=== PATIENT | female | born 1955 | race Caucasian/White ===

== ENCOUNTER 2016-12-24 07:05 | Inpatient (IN) | payer OTHER ==
[2016-12-24] VITALS (10 sets, daily range): BP systolic 120–131; BP diastolic 36–80; BMI 30.8
[~2016-12-24] VITALS: Ht 165.1 cm; Wt 83.9 kg
[~2016-12-24 07:05] MED LIST: ACTOS45 MG PO; ALEVE220 MG PO; AMBIEN10 MG PO; ASPIRIN EC81 M1 PO; CALCIUM 600 +1 EAC3 PO; CELEXA40 MG PO; GLUCOPHAGE1000 MG PO; HYDROCHLOROTHIA25 MG PO; HYDROCODON-ACE1 EAC7 PO; LIPITOR40 MG PO; MELATONIN5 MG PO; MIRALAX17 GM PO; MOBIC7.5 MG PO; PRINIVIL20 MG PO; VIBRAMYCIN 100100 MG PO
[2016-12-24 07:57] LABS: HEMATOCRIT 30.2 % (36.0-48.0); HEMOGLOBIN 9.3 g/dL (12-16); MCH 25.5 pg (26.0-34.0); MCHC 30.8 g/dL (31.0-37.0); MEAN PLATELET VOLUME 10.1 fL (7.4-10.4); RBC 3.64 10x6/uL (4.00-5.40); RDW 15.3 % (11.5-14.5); WBC 10.2 10x3/uL (4.8-10.8)
[2016-12-24 08:09] LABS: ANION GAP 14.4 mmol/L (8-16); CALCIUM 9.1 mg/dL (8.5-10.1); CARBON DIOXIDE 26.3 mmol/L (21.0-32.0); CREATININE - SERUM 1.1 mg/dL (0.6-1.3); POTASSIUM - SERUM 4.7 mmol/L (3.5-5.1)
--- NOTE | 2016-12-24 19:55 | NUR ---
REC'D PER STRETCHER FROM PACU POST OP OPEN HERNIA REPAIR PER SERVICES DR. MORIN. ASSESSMENT DONE LARGE MIDLINE ABDOMINAL INCISION WITH DRESSING C/D/I. TWO LAP SITES ON THE RIGHT ABDOMEN AND ENID DRAIN ON LEFT ABDOMEN. IV PATENT RT HAND SALINE LOCKED. IV LEFT ARM OF NS PLACED AT 125CC'S/HR. SITES X2 C/D/I. EPIDURAL IN PLACE. CONTINUOUS PULSE ON AND VS MACHINE SETUP TO MONITOR PATIENT. FAMILY MEMBERS IN ROOM.BANGURA TO BS DRAINAGE WITH YELLOW URINE.
--- NOTE | 2016-12-24 20:00 | NUR ---
PT C/O PAIN NOTIFIED ANESTHESIA OF THIS. ANESTHESIA CAME OVER AND SETUP BOLUS IF THIS DOES NOT HELP THEN A SMALL KICK PRESS OPERATOR MAY BE USED. HOB UP 30 DEGREES.
--- NOTE | 2016-12-24 21:00 | NUR ---
DENIES PAIN USES PILLOW TO SPLINT INCISION WITH COUGHING EFFORTS. WILL CONTINUE TO MONITOR PATIENT.
--- NOTE | 2016-12-24 22:30 | NUR ---
RESTING QUIETLY VS AND PULSE OX REMAIN STABLE.
[2016-12-25] VITALS (8 sets, daily range): BP systolic 122–152; BP diastolic 49–79; Ht 165.1 cm; Wt 83.9 kg
--- NOTE | 2016-12-25 | NUR ---
EYES CLOSED RESPIRATIONS WITH EASE AND UNLABORED O2 ON 2L/M PER NC SINCE ARRIVAL TO FLOOR. NO C/O PAIN OR DISTRESS.
--- NOTE | 2016-12-25 01:00 | NUR ---
VS REMAIN STABLE PLACED ON A BEDSIDE PULSE OX CONTINUOUS. REMOVED VS MACHINE PT TAKING ICE CHIPS WITHOUT NAUSEA OR VOMITING.
--- NOTE | 2016-12-25 05:22 | NUR ---
RESTING QUIETLY PULSE OX REMAINS AT 97-98% ON 2L/M PER NC.
--- NOTE | 2016-12-25 08:05 | NUR ---
ASSESSMENT PER FLOW SHEET.PT WITHOUT DISTRESS.DRESSING TO MIDLINE INCISION CDI.LAP SITES X2 WITH DRESSING IN PLACE CDI.ENID SITE CDI WITH BULB COMPRESSED, LIGHT AMOUNT OF DRAINAGE IN BULB.BANGURA TO GRAVITY WITH CLEAR YELLOW URINE IN BAG.EPIDURAL CATH IN PLACE,WITH DRESSING CLEAN AND DRY.PT REPOSITIONED.CONT PULSE OX IN PLACE,SATS 94-96 ON 2 LITERS PER NC.MONITOR
--- NOTE | 2016-12-25 10:50 | NUR ---
Patient Name: TYLER TOBIAS Admission Status: Elective Accout number: [id number] Admission Date: 12-24-2016 : 1955 Admission Diagnosis: Attending: MALLORY Current LOS: 1 Anticipated DC Date: 12-27-2016 Planned Disposition: Home Primary Insurance: [email or web address] [facility] INS EXCHANGE Discharge Planning Comments: CM SPOKE WITH PATIENT REGARDING D/C NEEDS AND PLANS. PATIENT STATED HER DAUGHTER (LIDIA) LIVES WITH HER AND WILL DRIVE HER HOME AT DISCHARGE. PATIENT HAS 2 STEPS TO ENTER HOME AND NO STAIRS INSIDE. PATIENT IS INDEPENDENT WITH HER CARE AND HAS A GLUCOMETER AT HOME (CHECKS 1X MONTH). PATIENT CAN BORROW WALKER, AND BS COMMODE FROM NEIGHBOR IF NEEDED. PATIENTS PCP IS DR. HELLEN RUIZ IN [place] AND USES [facility] IN [place]. PATIENT DOES NOT THINK SHE WILL NEED HOME HEALTH AT THIS TIME. CM WILL CONTINUE TO FOLLOW PATIENT WITH D/C NEEDS AND PLANS. PCP DR. HELLEN RUIZ [facility] AT [place] [phone] LIDIA CRUZ (DAUGHTER) [phone] Childcare Aide: Alexandra Garcia Is the patient Alert and Oriented? Yes 0 * How many steps to enter\exit or inside your home? 2 0 * PCP DR. HELLEN RUIZ ([place]) 0 * Pharmacy [facility]. IN [place] 0 * Preadmission Environment Home with Family 0 * ADLs Independent 0 * Equipment Glucometer 0 * Other Equipment CAN BORROW WALKER, AND BS COMMODE FROM NEIGHBOR 0 * List name and contact numbers for known caregivers / representatives who currently or will assist patient after discharge: LIDIA CRUZ (DAUGHTER) [phone] 0 * Community resources currently utilized None 0 * Additional services required to return to the preadmission environment? Yes 0 * Can the patient safely return to the preadmission environment? Yes 0 * Has this patient been hospitalized within the prior 30 days at any hospital? No 0 Grand Total: 0
--- NOTE | 2016-12-25 11:50 | NUR ---
INSTRUCTED PT TO PUSH EPIDURAL BUTTON FOR PAIN CONTROL.PT STATES PAIN 5/10 SCALE AT "BELLY BUTTON AREA." REMAINS WITHOUT DISTRESS, ALERT AND SATS 94-96 ON 2 LITERS PER NASAL CANULA.
--- NOTE | 2016-12-25 16:14 | NUR ---
FSBS 124, DECLINES MEDS
--- NOTE | 2016-12-25 18:07 | NUR ---
REMAINS WITHOUT NEEDS,WITHOUT DISTRESS.NO CHANGE FROM INITIAL SHIFT ASSESSMENT.CONT PLAN OF CARE
[2016-12-26] VITALS: BP 127/64
[2016-12-26 04:00] VITALS: BP 139/67
--- NOTE | 2016-12-26 07:50 | NUR ---
ASSESSMENT PER FLOW SHEET.PT WITHOUT DISTRESS AND DENIES PAIN.DRESSING TO ABD CDI TO MIDLINE INCISION.LAP SITES X2 CDI.ENID LLQ WITH MINIMAL DRAINAGE IN BULB.WITHOUT NAUSEA,BS HYPOACTIVE.PT STATES SHE IS PASSING GAS.REMAINS NPO.CALL LIGHT IN REACH
[2016-12-26 08:05] VITALS: BP 142/52
[2016-12-26 11:03] VITALS: BP 145/58
[2016-12-26 15:01] VITALS: BP 156/68
--- NOTE | 2016-12-26 15:27 | NUR ---
REMAINS WITHOUT DISTRESS.PAIN CONTROLLED.MONITOR
--- NOTE | 2016-12-26 16:30 | NUR ---
FSBS 109.REMAINS WITHOUT CHANGE FROM INITIAL SHIFT ASSESSMENT.TOLERATING CLD WITHOUT NAUSEA.CONT PLAN OF CARE
[2016-12-26 20:00] VITALS: BP 148/60
[2016-12-27] VITALS: BP 151/64
--- NOTE | 2016-12-27 01:30 | NUR ---
HUNG A NEW BAG OF FLUIDS. PATIENT DENIES OTHER NEEDS. BED IN LOWEST POSITION AND CALL LIGHT WITHIN REACH. ENCOURAGED THE PATIENT TO CALL IF SHE HAS FURTHER NEEDS.
[2016-12-27 04:00] VITALS: BP 149/67
--- NOTE | 2016-12-27 07:15 | NUR ---
REPORT RECEIVED FROM CUSTOMER OPERATIONS ASSOCIATE NURSE. CALL LIGHT IN REACH.
--- NOTE | 2016-12-27 07:24 | NUR ---
ANESTHESIOLOGIST IN ROOM TO PULL EPIDURAL.
--- NOTE | 2016-12-27 09:35 | NUR ---
ASSESSMENT COMPLETED. ACTOS PO. REFUSES METFORMIN BECAUSE PATIENT DOES NOT WANT BOTH DIABETES MEDS AT THIS TIME. NEW BAG OF NS INITIATED AND IV TUBING CHANGED PER HOSPITAL POLICY. DRSGs TO ABDOMEN CHANGED PER ORDER. DILAUDID SECURED ENTRANCE MONITOR INITIATED PER ORDER. SCDs TO BLE. CALL LIGHT IN REACH. WILL CONTINUE WITH PLAN OF CARE.
--- NOTE | 2016-12-27 10:05 | NUR ---
ASSISTED TO BR AND BACK TO BED. LIQUID STOOL NOTED IN TOILET AFTERWARDS.
[2016-12-27 10:08] VITALS: BP 160/55
--- NOTE | 2016-12-27 12:08 | NUR ---
SCHEDULED TYLENOL PER ORDER. CALL LIGHT IN REACH.
[2016-12-27 13:13] VITALS: BP 152/60
--- NOTE | 2016-12-27 13:41 | NUR ---
PT AOX4 RESP EVEN AND NONLABORED PT HERE FOR HERNIA REPAIR FOR THIS VISIT. PT DENIES NEEDS AT THIS TIME IV TO LEFT FOREARM PATENT AND INTACT SRX2 BED AT LOWEST SETTING CALL LIGHT WITHIN REACH. FAMILY AT BEDSIDE WILL CONTINUE TO MONITOR
--- NOTE | 2016-12-27 15:20 | NUR ---
STATES SHE HAS HAD A TOTAL OF 4 BMs SO FAR TODAY.
--- NOTE | 2016-12-27 17:02 | NUR ---
TYLENOL AND METFORMIN PO. CALL LIGHT IN REACH.
--- NOTE | 2016-12-27 17:36 | NUR ---
IV PEPCID PER ORDER. NEW BAG OF PRIMARY FLUIDS INITIATED. O2 DECREASED TO 1.5L PER NC. BANGURA CATH DC'D WITH TIP INTACT. ALSO PATIENT REPOSITIONED IN BED FOR COMFORT.T
[2016-12-27 17:37] VITALS: BP 138/47
--- NOTE | 2016-12-27 18:03 | NUR ---
NO CHANGES IN INITIAL ASSESSMENT. WANTS TO LEAVE SCDs OFF AT THIS TIME. CALL LIGHT IN REACH. WILL CONTINUE WITH PLAN OF CARE.
[2016-12-27 20:00] VITALS: BP 171/60
--- NOTE | 2016-12-27 23:00 | NUR ---
2250-CHIEF ARCHITECT NOTE-no complaints of pain or nausea. epidural out this day and states bench hand helps when she thinks to use it. haque out and voiding without complaints. jesús x 1 noted with scant amount of drainage-serous looking with 1 clot. states is passing gas-bowel sounds heard in all quad. states has had 5 loose stools today. call light in reach
[2016-12-28] VITALS: BP 148/54
[2016-12-28 04:00] VITALS: BP 153/44
--- NOTE | 2016-12-28 07:15 | NUR ---
REPORT RECEIVED FROM MACHINE STAPLER NURSE. CALL LIGHT IN REACH.
[2016-12-28 09:02] VITALS: BP 193/75
--- NOTE | 2016-12-28 09:53 | NUR ---
ASSESSMENT COMPLETED. ACTOS PO. WANTS TO HOLD OFF ON METFORMIN FOR NOW. PATIENT VERY ANXIOUS AND UPSET BECAUSE OF THE CONSTANT TRIPS BACK AND FORTH TO THE BATHROOM FOR BMs. ALSO INQUIRING ABOUT HER HOME MED AND A DIABETIC DIET. SPOKE WITH DR. MOIRN AND NEW ORDERS RECEIVED. SCDs HOOKED UP AND RESTARTED AT THIS TIME. CALL LIGHT IN REACH. WILL CONTINUE WITH PLAN OF CARE.
--- NOTE | 2016-12-28 10:20 | NUR ---
TOLERATED SOLID FOODS WELL. WILL CONTINUE TO MONITOR AT THIS TIME.
--- NOTE | 2016-12-28 12:24 | NUR ---
ORAL MEDS ADMINISTERED PER ORDER. CALL LIGHT IN REACH.
[2016-12-28 12:44] VITALS: BP 141/59
--- NOTE | 2016-12-28 14:58 | NUR ---
RESTING WITH EYES CLOSED. RESP EVEN AND UNLABORED. CALL LIGHT IN REACH.
--- NOTE | 2016-12-28 15:11 | NUR ---
RESTING QUIETLY IN BED. DENIES ANY NEEDS AT PRESENT.
--- NOTE | 2016-12-28 16:53 | NUR ---
REQUESTING BLOOD SUGAR. 157.
[2016-12-28 17:19] VITALS: BP 149/56
--- NOTE | 2016-12-28 18:00 | NUR ---
DRSGs X4 TO ABDOMEN CHANGED. NO OTHER CHANGES IN INITIAL ASSESSMENT. CALL LIGHT IN REACH. SCDs STILL OFF PER REQUEST. CALL LIGHT IN REACH. WILL CONTINUE WITH PLAN OF CARE.
[2016-12-28 20:00] VITALS: BP 148/57
--- NOTE | 2016-12-28 20:00 | NUR ---
ASSESSMENT PER FLOWSHEET. IV PATENT LEFT FOREARM OF NS AT 125CC'S/HR. FOREST FIRE LOOKOUT OF DILAUDID IN USE WITH SETTINGS AT 0.2MG Q10MIN W/NO LOCKOUT. MIDLINE ABD. INCISIONS X3 C/D/I. ENID DRAIN PATENT AND COMPRESSED.
--- NOTE | 2016-12-28 21:30 | NUR ---
MEDS GIVEN PER MAR.
[2016-12-29] VITALS: BP 136/48
--- NOTE | 2016-12-29 | NUR ---
RESTING QUIETLY RESPIRATIONS WITH EAS AND UNLABORED. PT HAS SOME SKIN TEARS ON HER BACK FROM TAPE REMOVAL AND EPIDURAL. NEOSPORING OINT. APPLIED TO SITES.
[2016-12-29 04:00] VITALS: BP 122/48
--- NOTE | 2016-12-29 07:30 | NUR ---
AWAKE AND ALERT AT THIS TIME. CALL LIGHT IN REACH, WILL CONTINUE WITH PLAN OF CARE.
[2016-12-29 08:00] VITALS: BP 125/45
--- NOTE | 2016-12-29 09:21 | NUR ---
SCHEDULED MEDICATIONS ADMINISTERED AT THIS TIME WITHOUT DIFFICULTY. FOREST TECHNOLOGY PROFESSOR D/C PER ORDER. ASSESSMENT PERFORMED PER FLOWSHEET. DRESSING REMAINS C/D/I TO ABDOMEN. ENID DRAIN WITH SEROUS DRAINAGE EMPTIED AT THIS TIME. BULB COMPRESSED. CALL LIGHT IN REACH, WILL CONTINUE WITH PLAN OF CARE.
[2016-12-29 11:35] VITALS: BP 129/45
--- NOTE | 2016-12-29 15:15 | NUR ---
PRN NORCO ADMINISTERED FOR PAIN 08/22. ENID DRAIN TO LEFT ABDOMEN REMOVED PER ORDER. DRESSINGS REMOVED FROM ABDOMEN AND ALL WELL APPROXIMATED WITH RADHA INTACT.
--- NOTE | 2016-12-29 17:04 | NUR ---
DISCHARGE PAPERWORK REVIEWED AND IV D/C WITH CATH TIP INTACT.
--- NOTE | 2016-12-30 10:04 | OP ---
PATIENT NAME: TYLER TOBIAS MEDICAL RECORD: [id number] :57 LOCATION:D.MS Lopez.2222 ADMISSION DATE:12/24/16 SURGEON: AVIS MORIN MD DATE OF OPERATION: 12/25/2016 PREOPERATIVE DIAGNOSIS: Multiple recurrent incisional hernias. POSTOPERATIVE DIAGNOSES: 1. Multiple recurrent incisional hernias, incarcerated with inability to close the fascia in the midline without utilizing the component separation technique. 2. Extensive intra-abdominal adhesions. PROCEDURE: Open complex recurrent incisional hernia repair with intraabdominal mesh with fascial closure over the mesh and the bilateral component separation technique. The myofascial release on the left was a 12.5 cm release. The myofascial release on the right was an 18 cm release. SURGEON: Avis Morin MD. PORCELAIN TECHNICIAN: None. BLOOD LOSS: 200 cc. ANESTHESIA: General. COMPLICATIONS: None. The risks, possible complications and alternatives to procedure were explained to the patient. She elects to proceed. A generous midline incision was accomplished. Sharp dissection was carried down into the peritoneal cavity. An extensive adhesiolysis was undertaken. This was a sharp adhesiolysis. Most of the adhesions were grade II grade III adhesions. Once I had complete adhesiolysis, I ran the small bowel. I noted no evidence of enterotomy. There was no evidence of any injury to the colon either. Attenuated fascia in the midline was excised with the electrocautery. Subcutaneous flaps were created sharply on top of the rectus muscles, which were widely . I was unable to approximate the rectus muscles in the midline. I went to the right side. A paramedian incision was accomplished between the right costal margin and the anterior superior iliac spine. Utilizing the electrocautery, I performed a myofascial release of the external oblique muscle. This was a full thickness release. Finger dissection was carried out deep to the muscle in order to allow for a complete release, so that the rectus muscle in the midline could be brought to medial. Even with this myofascial release on the right side, I was unable to approximate the fascia and the rectus muscles in the midline. Therefore, a bilateral release was needed. I went around to the left side. A paramedian incision was accomplished between the left costal margin and the anterior superior iliac spine. I dissected down to the external oblique muscle. This was incised with the electrocautery. A finger dissection was performed to ensure that a complete release of this muscle had been accomplished. OPERATIVE REPORT [id number] TYLER TOBIAS A large bilayered mesh was placed intraabdominally with the slick side down. I tacked in place on the left side with the SecureStrap Tacker. This was a skirted mesh. At no time was there any apparent injury to the intestines. I then brought the fascia together in the midline. I tacked some more of the mesh at this time on the right side to the anterior abdominal wall utilizing the SecureStrap Tacker. At no time was there any apparent injury to the intestines. I then approximated the fascia in the midline with a running looped #1 PDS incorporating a portion of the mesh with some of the PDS sutures. The suture was then tied. I irrigated and aspirated. There was no bleeding. The subcutaneous tissues in the midline a 19-Yoruba round Eduardo drain was placed. It was brought through the skin in the left lower quadrant. All 3 incisions were closed in the following manner. Interrupted 3-0 Vicryls for the deep dermis. Tereza for the skin. A sterile dressing was applied. The patient was then extubated and conveyed to the post-anesthesia care unit where she was in stable condition. She will be admitted as she will have a postoperative ileus and we will need to await return of bowel function. TRANSINT:[id number] Voice Confirmation ID: [id number] DOCUMENT ID: [id number] AVIS MORIN MD at 1004 CC: HELLEN RUIZ [id number] DICTATION DATE: 12/25/16 112 DEPUTY SHERIFF GENERALIST/BAILIFF: 12/25/162150 DIS IN 12/29/16 [facility] [address] [place] [address]
--- NOTE | 2016-12-30 10:04 | DS ---
PATIENT:TYLER TOBIAS :57 MEDICAL RECORD: [id number] DISCHARGE SUMMARY ADMISSION DATE: 12/24/16 DISCHARGE DATE: 12/29/16 PREOPERATIVE DIAGNOSIS: Complex incarcerated incisional hernias. PROCEDURE: Open complex recurrent incarcerated incisional hernias utilizing intraperitoneal mesh and the component separation technique for closure. SECONDARY DIAGNOSIS: Ucj-elkimio-zaguqzymp diabetes mellitus. HOSPITAL COURSE: The patient underwent the above operative procedure. Her pain was controlled with the patient controlled analgesia pump as well with an epidural catheter. Her bowel function returned. Her diet was advanced. The drain was removed prior to dismissal. I will see her in the office in 2 weeks for staple removal. TRANSINT:[id number] Voice Confirmation ID: [id number] DOCUMENT ID: [id number] AVIS MORIN MD at 1004 CC: HELLEN RUIZ [id number] DICTATION DATE: 12/29/16 1457 MARKETING EDUCATION TEACHER: 12/30/16 0204 DIS IN 12/29/16 [facility] [address] [place] [address]
--- NOTE | 2016-12-30 10:04 | HP ---
PATIENT: TYLER TOBIAS MEDICAL RECORD: [id number] ACCOUNT: [id number] LOCATION:D.MS Lopez.2222 : 57 ADMISSION DATE: 12/24/16 HISTORY AND PHYSICAL EXAMINATION There is a history and physical on the chart. This is a typed history and physical. Her history and physical examination is unchanged from her visit in the office. The risks, possible complications and alternatives to procedure were explained to the patient. She elects to proceed. TRANSINT:[id number] Voice Confirmation ID: [id number] DOCUMENT ID: [id number] AVIS MORIN MD at 1004 CC: HELLEN RUIZ [id number] DICTATION DATE: 12/24/161816 NEW GRAD RN: 12/24/162221 DIS IN 12/29/16 [address] [place] [address]
== END 2016-12-29 17:04 | disposition home or self-care (01) | DRG 337 ==
LOC: D.SDCHOLD 07:05 → D.MS 07:05 → D.SDCHOLD 09:15 → D.OPS 09:15 → EDSTATUS 09:15 → D.PAN 09:15 → D.SDCHOLD 09:30 → D.MS 19:19
PROVIDERS: Anesthesiology; ADMIT Surgery
PROC: 0WUF0JZ Supplement Abdominal Wall with Synthetic Substitute, Open Approach (ICD-10-PCS; principal; 2016-12-25)
PROC: 0DNW0ZZ Release Peritoneum, Open Approach (ICD-10-PCS; 2016-12-25)
PROC: 0KNK0ZZ Release Right Abdomen Muscle, Open Approach (ICD-10-PCS; 2016-12-25)
PROC: 0KNL0ZZ Release Left Abdomen Muscle, Open Approach (ICD-10-PCS; 2016-12-25)
DX: K43.0 Incisional hernia with obstruction, without gangrene (principal); E11.9 Type 2 diabetes mellitus without complications

== ENCOUNTER → 2017-04-17 10:43 | Outpatient (CLI) | payer OTHER ==
[2016-12-25 13:33] VITALS: BMI 30.7
[~2017-04-17 10:43] MED LIST changes: +DILAUDID2 MG PO; +KADIAN10 MG PO; +KEFLEX250 MG PO; +MOVANTIK25 MG PO; +ULTRAM50 MG PO
== END | disposition home or self-care (01) ==
LOC: D.CT 04-14 17:30
DX: R10.9 Unspecified abdominal pain (principal); G89.18 Other acute postprocedural pain

== ENCOUNTER 2017-06-09 08:10 | Day surgery (SDC) | payer OTHER ==
[~2017-06-09] VITALS: Ht 165.1 cm; Wt 78.6 kg
[~2017-06-09 08:10] MED LIST changes: -DILAUDID2 MG PO; -KADIAN10 MG PO; -KEFLEX250 MG PO; -MOVANTIK25 MG PO; -ULTRAM50 MG PO
[2017-06-09] MEDS ORDERED: KADIAN10 MG PO (09:03)
[2017-06-09] MEDS ORDERED: KEFLEX250 MG PO (09:03)
[2017-06-09] MEDS ORDERED: MOVANTIK25 MG PO (09:05)
[2017-06-09] MEDS ORDERED: ULTRAM50 MG PO (09:06)
[2017-06-09] MEDS ORDERED: DILAUDID2 MG PO (09:07)
[2017-06-09 09:15] VITALS: BP 131/59; BMI 28.8
[2017-06-09 09:25] LABS: HEMATOCRIT 26.1 % (36.0-48.0); HEMOGLOBIN 7.8 g/dL (12-16); MCH 23.9 pg (26.0-34.0); MCHC 29.9 g/dL (31.0-37.0); MCV 79.8 fL (80.0-100.0); RBC 3.27 10x6/uL (4.00-5.40); RDW 22.2 % (11.5-14.5); WBC 6.9 10x3/uL (4.8-10.8)
[2017-06-09 09:43] LABS: CALCIUM 9.1 mg/dL (8.5-10.1); CARBON DIOXIDE 23.9 mmol/L (21.0-32.0); CREATININE - SERUM 0.9 mg/dL (0.6-1.3); POTASSIUM - SERUM 3.9 mmol/L (3.5-5.1)
--- NOTE | 2017-06-09 09:53 | NUR ---
9735 ABNORMAL LAB PHONED TO ANESTHESIA KISHAN PERDUE CRNA.
--- NOTE | 2017-06-09 09:59 | NUR ---
0950-DR MORIN INFORMED OF LOW HEMOBLOBIN AND HEMATOCRIT-STATES THATS OK. NO NEW ORDERS. PROCEED WITH SURGERY.
--- NOTE | 2017-06-09 18:30 | NUR ---
O2 SAT AT 92% ON RA. O2 AT 2L PER NC O2 SAT TO 100%.
--- NOTE | 2017-06-09 18:33 | NUR ---
DR WADE CALLED ABOUT THE PATIENTS PAIN AND ORDERED THE PATIENT MAY BE PLACED ON A TRAPPER ANIMAL UPON ARRIVAL TO THE FOOR WITH THE EPIDURAL CONTINUED.
[2017-06-09 18:57] VITALS: BP 119/45
--- NOTE | 2017-06-09 20:40 | NUR ---
PT INSTRUCTED ON USE OF EPIDURAL BOLUS BUTTON. PT ASKING ABOUT ADDITIONAL PAIN BUTTON SHE WAS TOLD SHE WOULD HAVE. PT AT THIS TIME RATES HER PAIN 5/10. PT INSTRUCTED ON IMPORTANCE OF KEEPING HER SAFE WHEN TAKING HIGH DOSES OF PAIN MEDICATION, EXPECIALLY COMMUNICATION SPEC'S AND EPIDURALS. PT WAS INSTRUCTED THAT SHE HAD PO OXY IR WELL IV TORADOL. PT UNDERSTANDS CONCERN FOR POSSIBILTY OF BEING OVER MEDICATED AND IS ACCEPTING OF TRYING OXY IR AND TORADOL AT THIS TIME.
[2017-06-10 04:23] VITALS: BP 119/45; Ht 165.1 cm; Wt 78.6 kg
[2017-06-10 06:07] LABS: BASOPHILS 0.1 % (0-2); EOSINOPHILS 2.4 % (0-7); IMMATURE GRANULOCYTES 0.1 % (0-5); LYMPHOCYTES 10.6 % (15-50); MCH 23.7 pg (26.0-34.0); MCHC 29.2 g/dL (31.0-37.0); MCV 81.2 fL (80.0-100.0); MEAN PLATELET VOLUME 10.2 fL (7.4-10.4); MONOCYTES 11.7 % (2-11); NEUTROPHILS 75.1 % (40-80); PLATELET COUNT 350 10x3/uL (130-400); RBC 3.08 10x6/uL (4.00-5.40); RDW 22.3 % (11.5-14.5)
[2017-06-10 06:10] LABS: HEMOGLOBIN 7.3 g/dL (12-16)
[2017-06-10 06:40] LABS: ALBUMIN 3.3 g/dL (3.4-5.0); ALKALINE PHOSPHATASE 61 U/L (46-116); ALT (SGPT) 24 U/L (10-68); BILIRUBIN - TOTAL 0.74 mg/dL (0.2-1.3); CALC OSMOLALITY 268 mosm/kg (275-300); CALCIUM 8.7 mg/dL (8.5-10.1); CARBON DIOXIDE 23.9 mmol/L (21.0-32.0); CHLORIDE - SERUM 103 mmol/L (98-107); CREATININE - SERUM 0.8 mg/dL (0.6-1.3); GLUCOSE 129 mg/dL (74-106); MAGNESIUM - SERUM 1.8 mg/dL (1.8-2.4); PHOSPHOROUS 4.3 mg/dL (2.5-4.9); POTASSIUM - SERUM 4.1 mmol/L (3.5-5.1); PROTEIN - SERUM 6.5 g/dL (6.4-8.2); SODIUM 133 mmol/L (136-145); UREA NITROGEN 15 mg/dL (7-18); eGFR NON AFRICAN AMERICAN 77 mL/min (90-120)
--- NOTE | 2017-06-10 06:46 | NUR ---
2100)RATES PAIN ON 1-10 PAIN SCALE AFTER WAKING UP.02 0N AT 2L NC.02 SATS 97/98%.BP 117/43.DISCUSSED EPIDURAL BUTTON YOU CAN PUSH TO ASSIST WITH PAIN CONTROL.STATES I DIDN'T KNOW THAT.AFTER PUSHING BUTTON PAIN WENT FROM 5-2 ON 1-10 PAIN SCALE.DISCUSSED WITH PATIENT RECEIVING ADDITIONAL IV PAIN MED WHILE ON CONTINUOUS EPIDURAL BP/02 SAT MONITORING A SAFETY MECHANISM.IF AT ANY TIME PAIN LEVEL INCREASES WILL TAKE PAIN ISSUE FURTHER OR DESATING,DECREASE IN BP.WILL CONTINUE TO MONITOR FOR ANY CHGES. OR COMPLAINTS AND FOLLOW CURRENT PLAN OF CARE.VOICES UNDERSTANDING AND APPRECIATES US BEING CONCERNED IN REGUARDS TO THE ABOVE ISSUE. MAGALYS DEAN IN ROOM ASSESSING PATIENT.
[2017-06-10 21:51] VITALS: BP 113/66
--- NOTE | 2017-06-10 23:44 | NUR ---
REC'D. AT [facility]. OF SHIFT EYES CLOSED RESP. DEEP AND EVEN.02 3L NC SCD'S ON. WILL CONTINUE TO MONITOR FOR ANY CHGES. AND FOLLOW CURRENT PLAN OF CARE.WALLPAPERER DILAUDID WALLPAPERER IN PLACE FOR SELF PAIN CONTROL AT 0.2MG EVERY TEN MINUTES WITH NO FOUR HOUR LOCKOUT ORDERED
[2017-06-10 23:45] VITALS: BP 117/69
[2017-06-11 04:00] VITALS: BP 120/69
--- NOTE | 2017-06-11 07:07 | NUR ---
REPORT RECEIVED, ASSUMED CARE OF PT. NO NEEDS VOICED AT THIS TIME, NO SIGNS OF ACUTE DISTRESS.
[2017-06-11 08:16] VITALS: BP 123/44
[2017-06-11 12:14] VITALS: BP 120/48
--- NOTE | 2017-06-11 13:46 | NUR ---
PATIENT REQUESTED BLOOD GLOCOSE TEST. FSBG WAS 130.
[2017-06-11 15:38] VITALS: BP 112/53
[2017-06-11] MEDS ORDERED: HYDROCODON-ACE1 EAC7 PO (17:05)
--- NOTE | 2017-06-11 17:30 | NUR ---
BANGURA CATHETER D/C'D PER ORDER BY TU SMITH. PT TOLERATED WITH MINIMAL DISCOMFORT.
[2017-06-11 20:00] VITALS: BP 143/49
[2017-06-12] VITALS: BP 138/49
[2017-06-12 04:00] VITALS: BP 130/46
--- NOTE | 2017-06-12 07:23 | NUR ---
REPORT RECEIVED FROM STAFF RESEARCH ASSOCIATE NURSE. CALL LIGHT IN REACH.
--- NOTE | 2017-06-12 07:55 | NUR ---
ASSESSMENT COMPLETED. O2 DECREASED TO 2L PER NC. MACHINE OPERATOR SLITTER TECHNICIAN DC'D. CALL LIGHT IN REACH. WILL CONTINUE WITH PLAN OF CARE.
[2017-06-12 08:55] VITALS: BP 113/41
--- NOTE | 2017-06-12 09:55 | NUR ---
REQUESTING PAIN MEDS BUT TOO SOON AT THIS TIME. WILL BRING WHEN IT IS DUE.
--- NOTE | 2017-06-12 10:51 | NUR ---
LOVENOX SUBQ TO LLQ. OXY IR 10 MG PO PER C/O PAIN OF 7. LAB IN ROOM TO DRAW BLOOD. SISTER AT BEDSIDE. CALL LIGHT IN REACH.
[2017-06-12 10:55] LABS: HEMATOCRIT 21.3 % (36.0-48.0); LYMPHOCYTES 12.7 % (15-50); MCH 23.3 pg (26.0-34.0); MCHC 29.6 g/dL (31.0-37.0); MCV 78.9 fL (80.0-100.0); MEAN PLATELET VOLUME 9.6 fL (7.4-10.4); NEUTROPHILS 76.2 % (40-80); PLATELET COUNT 301 10x3/uL (130-400); RDW 21.1 % (11.5-14.5); WBC 9.3 10x3/uL (4.8-10.8)
[2017-06-12 11:03] LABS: HEMOGLOBIN 6.3 g/dL (12-16)
--- NOTE | 2017-06-12 11:11 | NUR ---
SPOKE WITH DR. MORIN ABOUT CRITICAL HGB OF 6.8. NEW ORDERS RECEIVED FROM 2 UNITS OF PRBC. INFORMED PATIENT AND SISTER. BOTH VERBALIZED UNDERSTANDING.
[2017-06-12 11:23] LABS: ANION GAP 10.2 mmol/L (8-16); CALCIUM 8.5 mg/dL (8.5-10.1); CARBON DIOXIDE 29.1 mmol/L (21.0-32.0); CREATININE - SERUM 0.9 mg/dL (0.6-1.3); POTASSIUM - SERUM 4.3 mmol/L (3.5-5.1)
--- NOTE | 2017-06-12 12:10 | NUR ---
DR. MORIN IN ROOM TO SEE PATIENT.
[2017-06-12 12:35] VITALS: BP 123/58
--- NOTE | 2017-06-12 12:35 | NUR ---
PRBC UNIT 1 INITIATED @ 125 CC/HR VIA PUMP. VSS AT THIS TIME. WILL WATCH PATIENT FOR THE NEXT 15 MINUTES.
--- NOTE | 2017-06-12 14:35 | NUR ---
BLOOD STILL INFUSING. VS 98.8 TEMPORAL, HR 88, RESP 16, AND BATSHEVA 122/61. WILL CONTINUE TO MONITOR.
--- NOTE | 2017-06-12 15:00 | NUR ---
PT WITHOUT NEEDS.CALL LIGHT IN REACH
--- NOTE | 2017-06-12 16:40 | NUR ---
2ND UNIT PRBCs INITIATED @ 125 CC/HR VIA PUMP. TEMP 99.2 TEMPORAL. WILL CONTINUE TO MONITOR.
[2017-06-12 16:46] VITALS: BP 127/51
[2017-06-12 17:14] LABS: APPEARANCE HAZY (CLEAR); BILIRUBIN NEGATIVE (NEGATIVE); COLOR YELLOW (YELLOW); GLUCOSE NEGATIVE (NEGATIVE); KETONE NEGATIVE (NEGATIVE); NITRITE NEGATIVE (NEGATIVE); PROTEIN TRACE mg/dL (NEGATIVE); UROBILINOGEN NORMAL (NORMAL)
[2017-06-12 17:16] LABS: WHITE CELLS - URINE 25-50 /hpf (0-5)
[2017-06-12 17:19] LABS: BACTERIA FEW /hpf (NONE SEEN); EPITHELIAL CELLS 0-5 /hpf (0-5)
--- NOTE | 2017-06-12 17:36 | NUR ---
BENADRYL PO PER C/O ITCHING.
--- NOTE | 2017-07-09 13:26 | OP ---
PATIENT NAME: TYLER TOBIAS MEDICAL RECORD: [id number] :57 LOCATION:D.OPS ADMISSION DATE: SURGEON: MICHEL MORIN MD DATE OF OPERATION: 06/09/2017 PREOPERATIVE DIAGNOSIS: Recurrent incarcerated incisional hernia. POSTOPERATIVE DIAGNOSIS: Recurrent incarcerated incisional hernia. PROCEDURE: Open recurrent incarcerated incisional hernia repair with Ventrio ST hernia patch. SURGEON: Michel Morin MD HEEL NAIL RASPER: None. BLOOD LOSS: Minimal. ANESTHESIA: General. COMPLICATIONS: None. The risks, possible complications and alternatives to procedure were explained to the patient. She elects to proceed. OPERATIVE COURSE: The patient was conveyed to the operating room electively on 06/09/2017. General anesthesia was induced by the anesthesia staff. The abdomen was sterilely prepped and draped. Through the patient's right subcostal incision, I excised the skin and subcutaneous tissue down to the hernia sac. The hernia sac was entered sharply. I excised the hernia sac. I excised the attenuated fascia superiorly and inferiorly. I then performed an adhesiolysis opening up room in the right upper quadrant that would accommodate the hernia patch. The hernia patch was hydrated. It was placed in the peritoneal cavity with the slick side toward the bowels and the rough side toward the anterior abdominal wall. The fascial closure over the hernia patch consistent with multiple interrupted horizontal mattress #1 Ethibonds. I then over overran the fascial closure with running #1 Vicryl. The deep adipose tissue was closed with interrupted 3-0 Vicryls. The subcutaneous adipose tissue was closed with interrupted 3-0 Vicryls. The skin was approximated with a running intracuticular 3-0 Vicryl. A sterile dressing was applied. The patient was then extubated and conveyed to post-anesthesia care unit where she was in stable condition. TRANSINT:[id number] Voice Confirmation ID: [id number] DOCUMENT ID: [id number] MICHEL MORIN MD at 1326 CC: HELLEN RUIZ [id number] DICTATION DATE: 06/09/171837 ELEVATOR SERVICE TECHNICIAN: 06/09/171925 [facility] 06/12/17 [place] [address]
--- NOTE | 2017-07-09 13:26 | HP ---
PATIENT: TYLER TOBIAS MEDICAL RECORD: [id number] ACCOUNT: [id number] LOCATION:DELISA : 57 ADMISSION DATE: 06/09/17 HISTORY AND PHYSICAL EXAMINATION ADDENDUM I saw the patient in my office. A history and physical examination was performed there. The history and physical examination is unchanged from the office. The patient had been operated by me in the past in [place]. The patient is status post gastric bypass. She developed an incisional hernia repair in the recent past. She has now developed a recurrence. The risks, possible complications, and alternatives to the procedure were explained to the patient. She elects to proceed. TRANSINT:[id number] Voice Confirmation ID: [id number] DOCUMENT ID: [id number] AVIS MORIN MD at 1326 CC: HELLEN RUIZ [id number] DICTATION DATE: 06/09/17 183 ANALYST COMPETITIVE INTELLIGENCE: 06/09/171922 [facility] 06/12/17 [id number] [place] [address]
== END 2017-06-12 20:00 | disposition home or self-care (01) ==
LOC: D.MS 08:10 → D.OPS 08:10 → D.PAN 09:45 → D.OPS 09:45 → D.MS 18:47 → D.OPS 06-12 20:00
PROVIDERS: Anesthesiology; Surgery
DX: K43.0 Incisional hernia with obstruction, without gangrene (principal); Z98.84 Bariatric surgery status; Z01.812 Encounter for preprocedural laboratory examination

== ENCOUNTER 2017-07-28 08:47 | Day surgery (SDC) | payer OTHER ==
[~2017-07-28] VITALS: Ht 165.1 cm; Wt 70.5 kg
--- NOTE | ~2017-07-28 | HP ---
PATIENT: TYLER TOBIAS MEDICAL RECORD: [id number] ACCOUNT: [id number] LOCATION:D.OPS : 57 ADMISSION DATE: 07/28/17 HISTORY AND PHYSICAL EXAMINATION CHIEF COMPLAINT: Abdominal pain. HISTORY OF PRESENT ILLNESS: The patient is complaining of abdominal pain. She has chronic abdominal pain. It is located at the inferior aspect of her midline incision. I have operated on the patient in the past up in [place] when she had a perforated duodenal ulcer. She is here to undergo EGD and colonoscopy due to blood loss anemia. SOCIAL HISTORY: Nonsmoker. PAST MEDICAL AND SURGICAL HISTORY: Orthostatic hypotension, non-insulin dependent diabetes mellitus, history of cholecystectomy, history of umbilical hernia repair, history of gastric bypass, history of operation for a perforated duodenal ulcer. HOME MEDICATIONS: Keflex, lisinopril, Lipitor, aspirin, Actos, Mobic, hydrochlorothiazide, tramadol. ALLERGIES: No known drug allergies. REVIEW OF SYSTEMS: Negative for renal disease or hepatitis. Negative for thyroid problems or CVA. PHYSICAL EXAMINATION: GENERAL: The patient does not appear acutely ill. He does appear chronically ill. The entire physical examination was performed in the presence of a female nurse. VITAL SIGNS: Reviewed. EARS: External ears appear normal. EYES: Extraocular movements are intact. NECK: Trachea is midline. CHEST: No intercostal retractions. PULMONARY: Nonlabored, no stridor. ABDOMEN: Tenderness in the right lower quadrant. No peritonitis to percussion. EXTREMITIES: No peripheral cyanosis. IMPRESSION: Anemia due to blood loss. PLAN: Will be EGD and colonoscopy. TRANSINT:[id number] Voice Confirmation ID: [id number] DOCUMENT ID: [id number] HISTORY AND PHYSICAL [id number] TYLER TOBIAS MIKEL, AVIS SALDAÑA at 0938 CC: HELLEN RUIZ [id number] DICTATION DATE: 07/28/17 1022 POWER PLANT ASSISTANT: 07/28/17 1106 [facility] 07/28/[address] [id number]
--- NOTE | ~2017-07-28 | OP ---
PATIENT NAME: TYLER TOBIAS MEDICAL RECORD: [id number] :57 LOCATION:D.OPS ADMISSION DATE: SURGEON: MICHEL MORIN MD DATE OF OPERATION: 07/28/2017 PREOPERATIVE DIAGNOSES: 1. Anemia due to blood loss. 2. Right lower quadrant abdominal pain. POSTOPERATIVE DIAGNOSES: 1. Anemia due to blood loss. 2. Right lower quadrant abdominal pain 3. Dilated gastric pouch. 4. No source of bleeding identified within colon, rectum, esophagus, stomach, or proximal jejunum. PROCEDURES: 1. Esophagogastrojejunoscopy with esophageal and gastric biopsies. 2. Total colonoscopy to cecum. SURGEON: Michel Morin MD HOTEL DIRECTOR: None. BLOOD LOSS: Minimal. ANESTHESIA: IV sedation. COMPLICATIONS: None. The risks, possible complications, and alternatives to the procedure were explained to the patient. She elects to proceed. ENDOSCOPIC COURSE: The patient was conveyed to the endoscopy suite electively on 07/28/2017. IV sedation was induced by the anesthesia staff. A bite block was inserted. A gastroscope was inserted into the mouth. It was advanced easily into the hypopharynx. The esophagus was easily intubated as were the stomach and the jejunum. I withdrew into the stomach. Fundal biopsies were obtained in the stomach. Then, I withdrew into the distal esophagus and distal esophageal biopsies were obtained in order to rule out [place] esophagus. The endoscope was then withdrawn under direct vision. The patient was then turned 180 degrees and placed in the Scruggs position. A digital rectal examination was performed. A colonoscope was inserted through the anus. It was easily advanced to the cecum. The prep was adequate. I slowly withdrew the endoscope. I irrigated and aspirated extensively. I dragged the folds. The pullback was greater than a 15-minute pullback. I used normal imaging as well as narrow band imaging. A retroflexed view was obtained in the rectum. I then unretroflexed the scope and removed it under direct vision. I will see the patient in my office in 2-3 weeks. TRANSINT:[id number] Voice Confirmation ID: [id number] DOCUMENT ID: [id number] OPERATIVE REPORT [id number] TYLER TOBIAS MICHEL MORIN MD at 0938 CC: HELLEN RUIZ [id number] DICTATION DATE: 07/28/17 1057 CASE MAKING MACHINE OPERATOR: 07/28/17 1355 [facility] 07/28/17 [place] [id number] [place] [id number]
[~2017-07-28 08:47] MED LIST changes: +DILAUDID2 MG PO; +KADIAN10 MG PO; +KEFLEX250 MG PO; +MOVANTIK25 MG PO; +ULTRAM50 MG PO
[2017-07-28] MEDS ORDERED: KEFLEX250 MG PO (09:40)
[2017-07-28 09:44] VITALS: BP 147/69; Ht 165.1 cm; Wt 70.5 kg
[2017-07-28 10:31] LABS: HEMATOCRIT 33.3 % (36.0-48.0); HEMOGLOBIN 10.2 g/dL (12-16); MCH 24.6 pg (26.0-34.0); MCHC 30.6 g/dL (31.0-37.0); MCV 80.2 fL (80.0-100.0); MEAN PLATELET VOLUME 10.9 fL (7.4-10.4); RBC 4.15 10x6/uL (4.00-5.40); RDW 18.2 % (11.5-14.5); WBC 7.9 10x3/uL (4.8-10.8)
[2017-07-28 10:32] LABS: ANION GAP 14.7 mmol/L (8-16); CALCIUM 9.9 mg/dL (8.5-10.1); CREATININE - SERUM 0.9 mg/dL (0.6-1.3); POTASSIUM - SERUM 3.7 mmol/L (3.5-5.1)
== END 2017-07-28 12:05 | disposition home or self-care (01) ==
LOC: D.OPS 08:47
PROVIDERS: Anesthesiology
DX: D50.0 Iron deficiency anemia secondary to blood loss (chronic) (principal); K31.89 Other diseases of stomach and duodenum; I95.1 Orthostatic hypotension; E11.9 Type 2 diabetes mellitus without complications; Z98.84 Bariatric surgery status; Z79.2 Long term (current) use of antibiotics; Z79.891 Long term (current) use of opiate analgesic; Z79.82 Long term (current) use of aspirin; Z79.1 Long term (current) use of non-steroidal anti-inflammatories (NSAID); Z79.899 Other long term (current) drug therapy